=== PATIENT | male | born 1960 | race Caucasian/White ===

== ENCOUNTER 2017-01-25 10:25 | Observation (INO) | payer BC ==
[~2017-01-25] VITALS: Ht 193 cm; Wt 129.1 kg
[2017-01-25] MEDS ORDERED: ATIVAN 0.5MG0.5 MG PO (11:13)
[2017-01-25] MEDS ORDERED: ZYLOPRIM100 MG PO (11:13)
[2017-01-25] MEDS ORDERED: AVAPRO150 MG PO (11:14)
[2017-01-25] MEDS ORDERED: TYLENOL325 MG PO (11:14)
[2017-01-25 13:37] LABS: CREATININE 0.9 mg/dL (0.6-1.3); ESTIMATED GFR (MDRD EQUATION) > 60
[2017-01-26 05:28] LABS: BASOPHIL # 0.1 K/uL (0.0-0.2); BASOPHIL % 0.8 %; EOSINOPHIL # 0.2 K/uL (0.0-0.5); HEMOGLOBIN 14.2 g/dL (12.0-17.0); IMMATURE GRANULOCYTE % 0.3 %; LYMPHOCYTE # 2.2 K/uL (0.8-4.0); LYMPHOCYTE % 30.7 %; MCH 28.8 pg (27.0-34.0); MCHC 34.6 gm/dL (32.0-36.5); MCV 83.2 fl (83.0-98.0); MONOCYTE # 0.5 K/uL (0.0-1.0); MONOCYTE % 6.6 %; MPV 9.6 fl (9.4-12.4); NEUTROPHIL # (ANC) 4.3 K/uL (1.4-9.0); NEUTROPHIL % 58.6 %; NRBC % 0 /100WBC (0-0.00); PLATELET COUNT 251 K/uL (150-450); RBC 4.93 M/uL (4.00-6.00); RDW-CV 12.1 % (11.9-14.6); WBC 7.3 K/uL (4.0-11.0)
[2017-01-26 05:40] LABS: ALBUMIN 3.9 gm/dL (3.5-5.0); ALK PHOS 52 IU/L (33-138); ALT 39 IU/L (12-78); ANION GAP 15.2 (10.0-19.0); AST 20 IU/L (10-40); BLOOD UREA NITROGEN 21 mg/dL (6-24); CALCIUM 8.6 mg/dL (8.5-10.5); CHLORIDE 107 mMol/L (96-110); CO2 23 mMol/L (22-32); ESTIMATED GFR (MDRD EQUATION) > 60; POTASSIUM 4.2 mMol/L (3.7-5.1); SODIUM 141 mMol/L (135-145); TOTAL BILIRUBIN 0.6 mg/dL (0.0-1.5)
[2017-01-26] MEDS ORDERED: SOLU-MEDROL1000 M1 IV (15:17)
== END 2017-01-26 16:05 | disposition disaster alternative care site (69) ==
LOC: GMSU 10:25
PROVIDERS: Nurse Practitioner Family; ADMIT Family Medicine
DX: G35 Multiple sclerosis (principal); I10 Essential (primary) hypertension; E78.2 Mixed hyperlipidemia; N40.0 Benign prostatic hyperplasia without lower urinary tract symptoms; Z87.891 Personal history of nicotine dependence; Z87.39 Personal history of other diseases of the musculoskeletal system and connective tissue; Z98.890 Other specified postprocedural states; Z79.899 Other long term (current) drug therapy
CPT/HCPCS: A9577; G0378; G0379; J2930; J7050